=== PATIENT | male | born 1980 | race Caucasian/White ===

== ENCOUNTER 2022-11-19 01:20 | Emergency (ER) | payer OTHER ==
[~2022-11-19] VITALS: Ht 185.4 cm; Wt 95.3 kg
[~2022-11-19 01:20] MED LIST: MILLIPRED DP5 M1 PO; TRAMADOL HCL50 MG PO
== END 2022-11-19 04:53 | disposition home or self-care (01) ==
LOC: ER 01:20
DX: K05.219 Aggressive periodontitis, localized, unspecified severity (principal); Z88.6 Allergy status to analgesic agent